=== PATIENT | female | born 1975 | race African-American/Black ===

== ENCOUNTER 2017-02-13 21:14 | Inpatient (IN) | payer BC ==
[~2017-02-13] VITALS: Ht 170.2 cm; Wt 122.9 kg
[2017-02-13] MEDS ORDERED: HYDROcodone/APAP 5/325MG 1 TAB TABLET PO PRN (22:30)
--- NOTE | 2017-02-13 22:30 | PHYS DOC ---
Past Medical History Past Medical History: Hypertension Additional Past Surgical Histo: FEMUR MELCHOR Alcohol Use: None Drug Use: None Adult General Chief Complaint Chief Complaint: ABSCESS HPI HPI Patient is a 41 year old female presents to the emergency department stating that she has an abscess under her left axilla. She states that she was seen at approximately a week ago and was placed on Bactrim. She states that the abscess was not getting any better. She states she has increased pain with arm movement. She states that she has had these in the past in which it had opened and drained them. Patient states her tetanus immunization is up-to-date. She denies any fever, chills or any nausea or vomiting. Review of Systems Review of Systems Constitutional: Denies fever or chills [] Eyes: Denies change in visual acuity, redness, or eye pain [] HENT: Denies nasal congestion or sore throat [] Respiratory: Denies cough or shortness of breath [] Cardiovascular: No additional information not addressed in HPI [] GI: Denies abdominal pain, nausea, vomiting, bloody stools or diarrhea [] : Denies dysuria or hematuria [] Musculoskeletal: Denies back pain or joint pain [] Integument: Denies rash or skin lesions complaint of abscess left axilla.. Neurologic: Denies headache, focal weakness or sensory changes [] Endocrine: Denies polyuria or polydipsia [] All other systems were reviewed and found to be within normal limits, except as documented in this note. Allergies Allergies Allergies Coded Allergies Type Severity Reaction Last Updated Verified No Known Drug Allergies 02/13/17 No Physical Exam Physical Exam Constitutional: Well developed, well nourished, no acute distress, non-toxic appearance. [] HENT: Normocephalic, atraumatic, bilateral external ears normal, oropharynx moist, no oral exudates, nose normal. [] Eyes: PERRLA, EOMI, conjunctiva normal, no discharge. [] Neck: Normal range of motion, no tenderness, supple, no stridor. [] Cardiovascular:Heart rate regular rhythm, no murmur [] Lungs & Thorax: Bilateral breath sounds clear to auscultation [] Skin: Warm, dry, no erythema, no rash. Left axilla with an abscess that is very hard and tender. No fluctuation noted. No drainage noted from the area. The size appears to be the size of a golf ball. Extremities: No tenderness, no cyanosis, no clubbing, ROM intact, no edema. [] Neurologic: Alert and oriented X 3, normal motor function, normal sensory function, no focal deficits noted. [] Psychologic: Affect normal, judgement normal, mood normal. [] Current Patient Data Vital Signs Vital Signs Date Time Temp Pulse Resp B/P (MAP) Pulse Ox O2 Delivery O2 Flow Rate FiO2 02/13/17 21:50 97.8 105 22 115/56 (75) 99 Room Air 97.8 EKG EKG [] Radiology/Procedures Radiology/Procedures [][facility] [address] [place] [address] IMAGING REPORT Signed PATIENT: SHAISTA DIEHL ACCOUNT: [id number] : 1975 LOCATION: ER AGE: 41 SEX: F EXAM STATUS: REG ER ORD. PHYSICIAN: BRITTA BENSON APRN REASON: abscess left axilla PROCEDURE: EXT NON VASC LTD LEFT Left axilla ultrasound February 13, 2017 INDICATION: Lingula Swain, swelling COMPARISON: None available TECHNIQUE: Sonographic imaging of the left axilla was performed. FINDINGS: There is a complex fluid collection measuring 2.8 x 3.8 x 2.2 cm. There is hyperemia and skin thickening involving the subcutaneous soft tissues and skin surrounding this area. Heterogeneous internal architecture most suggestive of an abscess. IMPRESSION: There is suggestion of a 2.8 x 3.8 x 2.2 cm subcutaneous abscess in the left axilla. A hematoma is a differential consideration. Electronically signed by: Alicja Crowder MD (02/13/2017 11:25 PM) [facility] DICTATED and SIGNED BY: ALICJA CROWDER MD DATE: 02/13/17 3818 CC: BRITTA BENSON APRN; NON,STAFF; JAYA STEWART MD ~ Course & Med Decision Making Course & Med Decision Making Pertinent Labs and Imaging studies reviewed. (See chart for details) Spoke with Dr. Howell in regards to admission for this patient. Patient will be placed in as a full admission with recommendations to have Dr. Stevens see the patient for incision and drainage potentially. Patient will be placed on clindamycin. Patient will be provided with pain medication. Patient is provided this information. She agrees with admission at this time. [] Dragon Disclaimer Dragon Disclaimer This electronic medical record was generated, in whole or in part, using a voice recognition dictation system. Departure Departure Impression: Primary Impression: Abscess of axilla, left Disposition: ADMITTED INPATIENT Admitting Physician: Stephanie Howell Condition: STABLE Referrals: JAYA STEWART MD (PCP) BRITTA BENSON PIER MASTER ASSISTANT Feb 13, 2017 22:29
--- NOTE | 2017-02-13 23:28 | RAD ---
Left axilla ultrasound February 13, 2017 INDICATION: Lingula Swain, swelling COMPARISON: None available TECHNIQUE: Sonographic imaging of the left axilla was performed. FINDINGS: There is a complex fluid collection measuring 2.8 x 3.8 x 2.2 cm. There is hyperemia and skin thickening involving the subcutaneous soft tissues and skin surrounding this area. Heterogeneous internal architecture most suggestive of an abscess. IMPRESSION: There is suggestion of a 2.8 x 3.8 x 2.2 cm subcutaneous abscess in the left axilla. A hematoma is a differential consideration. Electronically signed by: Dawn Aquino MD (02/13/2017 11:25 PM) [facility]
[2017-02-13 23:32] LABS: BASO # 0.1 x10^3/uL (0.0-0.2); BASO % 1 % (0-3); EOS % 2 % (0-3); HEMATOCRIT 40.1 % (36.0-47.0); HEMOGLOBIN 12.5 g/dL (12.0-15.5); LYMPH # 4.3 x10^3/uL (1.0-4.8); LYMPH % 30 % (24-48); MEAN CORPUSCULAR HEMOGLOBIN 21 pg (25-35); MEAN CORPUSCULAR HGB CONC 31 g/dL (31-37); MEAN CORPUSCULAR VOLUME 69 fL (79-100); MONO % 5 % (0-9); NEUT % 63 % (31-73); PLATELET COUNT 308 x10^3/uL (140-400); RED BLOOD COUNT 5.84 x10^6/uL (3.50-5.40); RED CELL DISTRIBUTION WIDTH 15.2 % (11.5-14.5); WHITE BLOOD COUNT 14.3 x10^3/uL (4.0-11.0)
[2017-02-13] MEDS: CLINDAMYCIN 600MG PREMIX 50 ML IV SCH (23:33)
[2017-02-13] MEDS: IV NORMAL SALINE 1000ML BAG 1,000 ML IV SCH ×2 (23:34→23:35)
[2017-02-13 23:45] LABS: CALCIUM 9.2 mg/dL (8.5-10.1); CREATININE 0.8 mg/dL (0.6-1.0); GFR 95.6; POTASSIUM 3.9 mmol/L (3.5-5.1)
[2017-02-13 23:48] LABS: PLT ESTIMATE ADEQUATE (ADEQUATE)
[2017-02-13 23:49] LABS: ALBUMIN 3.5 g/dL (3.4-5.0); ALBUMIN/GLOBULIN RATIO 0.7 (1.0-1.7); TOTAL BILIRUBIN 0.2 mg/dL (0.2-1.0); TOTAL PROTEIN 8.6 g/dL (6.4-8.2)
[2017-02-13 23:50] LABS: HYPOCHROMIA MOD
[2017-02-13 23:51] LABS: MICROCYTOSIS MOD
[2017-02-14] VITALS (14 sets, daily range): BP systolic 87–107; BP diastolic 49–66
[2017-02-14] MEDS ORDERED: GABA-586 PO (00:15)
[2017-02-14] MEDS ORDERED: IBUPROFEN 800 MG TABLET. PO PRN (00:15)
[2017-02-14] MEDS ORDERED: LISI1TAB7 PO (00:15)
[2017-02-14] MEDS ORDERED: TOPI25TA52 PO (00:16)
[2017-02-14] MEDS ORDERED: METH-37 PO (00:18)
[2017-02-14] MEDS ORDERED: ESOM40CA PO (00:18)
[2017-02-14] MEDS ORDERED: FAMO40TA57 PO (00:20)
[2017-02-14] MEDS ORDERED: IBUP800T19 PO (00:20)
[2017-02-14] MEDS: CLINDAMYCIN 600MG PREMIX 50 ML IV SCH ×3 (05:22→22:03)
[2017-02-14 05:45] LABS: BASO % 0 % (0-3); EOS % 2 % (0-3); HEMATOCRIT 35.2 % (36.0-47.0); HEMOGLOBIN 10.9 g/dL (12.0-15.5); LYMPH # 4.2 x10^3/uL (1.0-4.8); LYMPH % 34 % (24-48); MEAN CORPUSCULAR HEMOGLOBIN 21 pg (25-35); MEAN CORPUSCULAR HGB CONC 31 g/dL (31-37); MEAN CORPUSCULAR VOLUME 68 fL (79-100); MONO % 5 % (0-9); NEUT % 59 % (31-73); PLATELET COUNT 269 x10^3/uL (140-400); RED BLOOD COUNT 5.15 x10^6/uL (3.50-5.40); RED CELL DISTRIBUTION WIDTH 15.8 % (11.5-14.5); WHITE BLOOD COUNT 12.4 x10^3/uL (4.0-11.0)
[2017-02-14 06:06] LABS: CALCIUM 8.4 mg/dL (8.5-10.1); CREATININE 0.6 mg/dL (0.6-1.0); GFR 133.3; POTASSIUM 3.6 mmol/L (3.5-5.1)
[2017-02-14] MEDS: hydroCHLOROthiazide 25 MG TABLET PO SCH (09:00)
[2017-02-14] MEDS ORDERED: FAMOTIDINE 40 MG PO SCH (09:00)
[2017-02-14] MEDS: METHOCARBAMOL 500 MG TABLET PO SCH ×3 (09:00→20:51)
[2017-02-14] MEDS: LISINOPRIL 20 MG TABLET PO SCH (09:00)
[2017-02-14] MEDS: GABAPENTIN 300 MG CAPSULE. PO SCH ×3 (09:00→20:51)
[2017-02-14] MEDS: TOPIRAMATE 25 MG TABLET. PO SCH ×2 (09:00→20:51)
[2017-02-14] MEDS: KETOROLAC 30 MG/ML INJ. IV PRN ×2 (09:08→20:55)
[2017-02-14] MEDS: PANTOPRAZOLE 40 MG TABLET.DR. PO SCH ×2 (09:19→17:11)
--- NOTE | 2017-02-14 11:06 | PDOC1 ---
History and Physical Date of Admission Date of Admission DATE: 02/14/17 TIME: 10:55 Identification/Chief Complaint Chief Complaint left armpit pain and swelling Problems: Source Source: Caregiver, Chart review, Patient History of Present Illness History of Present Illness morbidly obese 41 y.o AA female, non diabetic, left armpit pain and sweling, on and off fevers at home, has seen urgent care etc and completed 2 week course doxy and bactrim,no resolve, hence admitted. GS consulted, VEry tender just on mere lifting of left axilla, palpable induration and very tender on exam, WBC 12 from 14 after overnight IV abx, dw GS - will do I and D later today.Pt agrees Past Medical History Cardiovascular: HTN Musculoskeletal: Other (neuropathy) Past Surgical History Past Surgical History: No pertinent history Family History Family History: Family History Unknown Social History Smoke: No ALCOHOL: none Drugs: None Current Problem List Problem List Problems Medical Problems: (1) Abscess of axilla, left Status: Acute Problems: Current Medications Current Medications Current Medications Sodium Chloride 1,000 ml @ 125 mls/hr Q8H IV Last administered on 02/13/17 23:34; Start 02/13/17 at 23:00; Stop 02/14/17 at 22:59 Clindamycin Phosphate 50 ml @ 100 mls/hr Q8HRS IV Last administered on 05:22; Start 02/13/17 at 23:00 Acetaminophen/ Hydrocodone Bitart (Lortab 5/325) 2 tab PRN Q6HRS PRN PO SEVERE PAIN; Start 02/13/17 at 22:30 Ibuprofen (Motrin) 800 mg PRN Q6HRS PRN PO INFLAMMATION; Start 02/14/17 at 00: 15 Methocarbamol (Robaxin) 500 mg TID PO ; Start 02/14/17 at 09:00 Topiramate (Topamax) 25 mg BID PO ; Start 02/14/17 at 09:00 Pantoprazole Sodium (Protonix) 40 mg BIDAC PO Last administered on 02/14/17 09:19; Start 02/14/17 at 07:30 Non-Formulary Medication 40 mg TID PO ; Start 02/14/17 at 09:00; Stop at 09:00; Status DC Gabapentin (Neurontin) 300 mg TID PO ; Start 02/14/17 at 09:00 Lisinopril (Prinivil) 20 mg DAILY PO ; Start 02/14/17 at 09:00 Hydrochlorothiazide (Hydrodiuril) 25 mg DAILY PO ; Start 02/14/17 at 09:00 Ketorolac Tromethamine (Toradol) 30 mg PRN Q6HRS PRN IV PAIN Last administered on 02/14/17t 09:08; Start 02/14/17 at 08:30; Stop 02/19/17 at 08:29 Active Scripts Active Reported Ibuprofen 800 Mg Tablet 800 Mg PO Pepcid (Famotidine) 40 Mg Tablet 40 Mg PO TID Nexium Capsule (Esomeprazole Magnesium) 40 Mg Capsule.dr 40 Mg PO BID Robaxin (Methocarbamol) 500 Mg Tablet 1 Tab PO TID Topamax (Topiramate) 25 Mg Tablet 1 Tab PO BID Lisinopril-Hctz 20-25 Mg Tab (Lisinopril/Hydrochlorothiazide) 1 Each Tablet 1 Tab PO DAILY Gabapentin 300 Mg Capsule 300 Mg PO TID Allergies Allergies: Coded Allergies: No Known Drug Allergies (Unverified , 02/13/17) ROS Review of System as per HPI, all else is neg Physical Exam General: Alert, Oriented X3, Cooperative, No acute distress HEENT: PERRLA Lungs: Clear to auscultation, Normal air movement Heart: S1S2, RRR, no thrills, no rubs, no gallops, no murmurs Cardiovascular: S1, S2 Abdomen: Normal bowel sounds, Soft, No tenderness, No hepatosplenomegaly, No masses Rectal Exam: not examined Extremities: No clubbing, No cyanosis, No edema, Normal pulses, No tenderness/ swelling Skin: Other (left axilla tender to aplpation, redness, swelling palpable tender induartion, high likelihod of abscess) Neuro: Normal gait, Normal speech, Strength at 5/5 X4 ext, Normal tone, Sensation intact, Cranial nerves 3-12 NL, Reflexes 2+ Psych/Mental Status: Mental status NL, Mood NL Vitals Vitals Vital Signs Date Time Temp Pulse Resp B/P (MAP) Pulse Ox O2 Delivery O2 Flow Rate FiO2 02/14/17 07:00 98.9 98 18 87/55 (66) 93 Room Air 98.9 95/49 (64) Labs Labs Laboratory Tests Test 02/13/17 23:24 02/14/17 04:35 White Blood Count 14.3 x10^3/uL (4.0-11.0) 12.4 x10^3/uL (4.0-11.0) Red Blood Count 5.84 x10^6/uL (3.50-5.40) 5.15 x10^6/uL (3.50-5.40) Hemoglobin 12.5 g/dL (12.0-15.5) 10.9 g/dL (12.0-15.5) Hematocrit 40.1 % (36.0-47.0) 35.2 % (36.0-47.0) Mean Corpuscular Volume 69 fL (79-100) 68 fL (79-100) Mean Corpuscular Hemoglobin 21 pg (25-35) 21 pg (25-35) Mean Corpuscular Hemoglobin Concent 31 g/dL (31-37) 31 g/dL (31-37) Red Cell Distribution Width 15.2 % (11.5-14.5) 15.8 % (11.5-14.5) Platelet Count 308 x10^3/uL (140-400) 269 x10^3/uL (140-400) Neutrophils (%) (Auto) 63 % (31-73) 59 % (31-73) Lymphocytes (%) (Auto) 30 % (24-48) 34 % (24-48) Monocytes (%) (Auto) 5 % (0-9) 5 % (0-9) Eosinophils (%) (Auto) 2 % (0-3) 2 % (0-3) Basophils (%) (Auto) 1 % (0-3) 0 % (0-3) Neutrophils # (Auto) 8.9 x10^3uL (1.8-7.7) 7.3 x10^3uL (1.8-7.7) Lymphocytes # (Auto) 4.3 x10^3/uL (1.0-4.8) 4.2 x10^3/uL (1.0-4.8) Monocytes # (Auto) 0.7 x10^3/uL (0.0-1.1) 0.7 x10^3/uL (0.0-1.1) Eosinophils # (Auto) 0.2 x10^3/uL (0.0-0.7) 0.2 x10^3/uL (0.0-0.7) Basophils # (Auto) 0.1 x10^3/uL (0.0-0.2) 0.0 x10^3/uL (0.0-0.2) Platelet Estimate Adequate (ADEQUATE) Hypochromasia Mod Microcytosis Mod Sodium Level 137 mmol/L (136-145) 139 mmol/L (136-145) Potassium Level 3.9 mmol/L (3.5-5.1) 3.6 mmol/L (3.5-5.1) Chloride Level 100 mmol/L (98-107) 103 mmol/L (98-107) Carbon Dioxide Level 27 mmol/L (21-32) 26 mmol/L (21-32) Anion Gap 10 (6-14) 10 (6-14) Blood Urea Nitrogen 13 mg/dL (7-20) 12 mg/dL (7-20) Creatinine 0.8 mg/dL (0.6-1.0) 0.6 mg/dL (0.6-1.0) Estimated GFR (Cockcroft-Gault) 95.6 133.3 BUN/Creatinine Ratio 16 (6-20) Glucose Level 111 mg/dL (70-99) 96 mg/dL (70-99) Calcium Level 9.2 mg/dL (8.5-10.1) 8.4 mg/dL (8.5-10.1) Total Bilirubin 0.2 mg/dL (0.2-1.0) Aspartate Amino Transf (AST/SGOT) 16 U/L (15-37) Alanine Aminotransferase (ALT/SGPT) 25 U/L (14-59) Alkaline Phosphatase 66 U/L (46-116) Total Protein 8.6 g/dL (6.4-8.2) Albumin 3.5 g/dL (3.4-5.0) Albumin/Globulin Ratio 0.7 (1.0-1.7) Laboratory Tests Test 02/13/17 23:24 02/14/17 04:35 White Blood Count 14.3 x10^3/uL (4.0-11.0) 12.4 x10^3/uL (4.0-11.0) Red Blood Count 5.84 x10^6/uL (3.50-5.40) 5.15 x10^6/uL (3.50-5.40) Hemoglobin 12.5 g/dL (12.0-15.5) 10.9 g/dL (12.0-15.5) Hematocrit 40.1 % (36.0-47.0) 35.2 % (36.0-47.0) Mean Corpuscular Volume 69 fL (79-100) 68 fL (79-100) Mean Corpuscular Hemoglobin 21 pg (25-35) 21 pg (25-35) Mean Corpuscular Hemoglobin Concent 31 g/dL (31-37) 31 g/dL (31-37) Red Cell Distribution Width 15.2 % (11.5-14.5) 15.8 % (11.5-14.5) Platelet Count 308 x10^3/uL (140-400) 269 x10^3/uL (140-400) Neutrophils (%) (Auto) 63 % (31-73) 59 % (31-73) Lymphocytes (%) (Auto) 30 % (24-48) 34 % (24-48) Monocytes (%) (Auto) 5 % (0-9) 5 % (0-9) Eosinophils (%) (Auto) 2 % (0-3) 2 % (0-3) Basophils (%) (Auto) 1 % (0-3) 0 % (0-3) Neutrophils # (Auto) 8.9 x10^3uL (1.8-7.7) 7.3 x10^3uL (1.8-7.7) Lymphocytes # (Auto) 4.3 x10^3/uL (1.0-4.8) 4.2 x10^3/uL (1.0-4.8) Monocytes # (Auto) 0.7 x10^3/uL (0.0-1.1) 0.7 x10^3/uL (0.0-1.1) Eosinophils # (Auto) 0.2 x10^3/uL (0.0-0.7) 0.2 x10^3/uL (0.0-0.7) Basophils # (Auto) 0.1 x10^3/uL (0.0-0.2) 0.0 x10^3/uL (0.0-0.2) Platelet Estimate Adequate (ADEQUATE) Hypochromasia Mod Microcytosis Mod Sodium Level 137 mmol/L (136-145) 139 mmol/L (136-145) Potassium Level 3.9 mmol/L (3.5-5.1) 3.6 mmol/L (3.5-5.1) Chloride Level 100 mmol/L (98-107) 103 mmol/L (98-107) Carbon Dioxide Level 27 mmol/L (21-32) 26 mmol/L (21-32) Anion Gap 10 (6-14) 10 (6-14) Blood Urea Nitrogen 13 mg/dL (7-20) 12 mg/dL (7-20) Creatinine 0.8 mg/dL (0.6-1.0) 0.6 mg/dL (0.6-1.0) Estimated GFR (Cockcroft-Gault) 95.6 133.3 BUN/Creatinine Ratio 16 (6-20) Glucose Level 111 mg/dL (70-99) 96 mg/dL (70-99) Calcium Level 9.2 mg/dL (8.5-10.1) 8.4 mg/dL (8.5-10.1) Total Bilirubin 0.2 mg/dL (0.2-1.0) Aspartate Amino Transf (AST/SGOT) 16 U/L (15-37) Alanine Aminotransferase (ALT/SGPT) 25 U/L (14-59) Alkaline Phosphatase 66 U/L (46-116) Total Protein 8.6 g/dL (6.4-8.2) Albumin 3.5 g/dL (3.4-5.0) Albumin/Globulin Ratio 0.7 (1.0-1.7) VTE Prophylaxis Ordered VTE Prophylaxis Devices: Yes VTE Pharmacological Prophylaxi: Yes Assessment/Plan Assessment/Plan 1. LEft axillary cellulitis possible abscess underneath - already scheduled for I and D later as clinically needs it, no imaging on admit, no need given sx scheduled already - labs post op, control pain, consider NSAids post op when ok with GS 2. Obesity, depression chronic pain ,neuropathy - all chronic stable cont home meds ROBERTA TURNER MD Feb 14, 2017 11:06
[2017-02-14] MEDS ORDERED: CITRIC ACID/SODIUM CITRATE 30 ML SOLUTION. PO ONE (11:45)
[2017-02-14] MEDS ORDERED: METOCLOPRAMIDE HCL 10 MG/2 ML VIAL. IV ONE (11:45)
[2017-02-14] MEDS ORDERED: LIDOCAINE 2% PF Vial for OR 5 ML VIAL. ONE (12:05)
[2017-02-14] MEDS ORDERED: ONDANSETRON PF 4 MG/2 ML VIAL. ONE ×2 (12:05→12:07)
[2017-02-14] MEDS ORDERED: PROPOFOL 20 ML IV ONE (12:05)
[2017-02-14] MEDS ORDERED: DEXAMETHASONE SOD PHOS 20 MG/5 ML VIAL. ONE (12:05)
[2017-02-14] MEDS ORDERED: fentaNYL PF VIAL 100 MCG/2 ML VIAL ONE ×2 (12:05→13:07)
[2017-02-14] MEDS ORDERED: SUCCINYLCHOLINE 200 MG/10 ML VIAL. ONE (12:14)
[2017-02-14] MEDS ORDERED: BUPIVAC MPF-EPI 0.5%-1:200000 30 ML VIAL. ONE (12:25)
[2017-02-14] MEDS ORDERED: SURGICEL HEMOSTAT 2X3 EACH. ONE (12:33)
--- NOTE | 2017-02-14 12:49 | PDOC ---
BRIEF OPERATIVE NOTE Date: Feb 14, 2017 Pre-Op Diagnosis left axillary abscess Post-Op Diagnosis same Procedure Performed excisional debridement of skin and subcutaneous fat, left axilla Surgeon Rodney Anesthesia Type: General Blood Loss 5cc IV Fluid 400 cc Specimens Obtained cultures Findings sebaceous abscess Complications none Operative Note Wk # [id number] JOSE HERNANDEZ MD Feb 14, 2017 12:49
[2017-02-14] MEDS ORDERED: SEVOFLURANE 31 TO 60 MINUTES. IH ONE (12:58)
[2017-02-14] MEDS ORDERED: IV RINGERS,LACTATED 1000ML 1,000 ML IV SCH (13:00)
[2017-02-14] MEDS: fentaNYL PF VIAL 100 MCG/2 ML VIAL IV PRN ×2 (13:09→13:23)
[2017-02-14] MEDS ORDERED: MORPHINE SULFATE 2 MG/ML DISP.SYRIN. IV PRN (13:15)
[2017-02-14] MEDS ORDERED: ONDANSETRON PF 4 MG/2 ML VIAL. IV PRN (13:15)
[2017-02-14] MEDS ORDERED: fentaNYL PF VIAL 100 MCG/2 ML VIAL IV PRN (13:15)
[2017-02-14] MEDS ORDERED: LIDOCAINE 1% PF 2 ML VIAL. ID PRN (13:15)
[2017-02-14] MEDS ORDERED: HYDROmorphone 2 MG/ML VIAL ONE (13:28)
[2017-02-14] MEDS: HYDROmorphone 2 MG/ML VIAL IV PRN ×2 (13:31→13:41)
[2017-02-14] MEDS: PROCHLORPERAZINE 10 MG/2 ML VIAL. IV PRN ×2 (13:50→14:05)
--- NOTE | 2017-02-14 14:54 | OP ---
DATE OF SURGERY: 02/14/2017 PREOPERATIVE DIAGNOSIS: Left axillary abscess. POSTOPERATIVE DIAGNOSIS: Left axillary abscess. PROCEDURE: Excisional debridement of skin and subcutaneous fat, left axilla. SURGEON: Jose Hernandez MD ANESTHESIA: General. BLOOD LOSS: 5 mL. INTRAVENOUS FLUID: 400 mL. INDICATIONS: The patient is a 41-year-old with pain, swelling, induration and fluctuance in the left axilla, brought for debridement. OPERATIVE FINDINGS: She appeared to have a sebaceous abscess. DESCRIPTION OF PROCEDURE: The patient brought to the operating suite. The patient given a general LMA and the left axilla was prepped and draped in usual sterile fashion. An elliptical skin incision over the process was made and purulent drainage evacuated. The wound was cultured. It was irrigated and checked for hemostasis. When present and a correct sponge count was obtained, the wound was dressed with a piece of Surgicel and half-inch plain Nu Gauze soaked in saline. Sterile dressing applied. The patient awakened from her anesthetic and taken to the recovery room in satisfactory condition. JOSE HRENANDEZ MD DR: GABI/fadumo JOB#: [id number] / [id number]
[2017-02-14] MEDS: IV NORMAL SALINE 1000ML BAG 1,000 ML IV SCH (15:11)
[2017-02-15] VITALS (7 sets, daily range): BP systolic 104–139; BP diastolic 52–80
[2017-02-15] MEDS: CLINDAMYCIN 600MG PREMIX 50 ML IV SCH (05:46)
[2017-02-15] MEDS: METHOCARBAMOL 500 MG TABLET PO SCH ×3 (08:00→20:42)
[2017-02-15] MEDS: GABAPENTIN 300 MG CAPSULE. PO SCH ×3 (08:00→20:42)
[2017-02-15] MEDS: TOPIRAMATE 25 MG TABLET. PO SCH ×2 (08:00→20:42)
[2017-02-15] MEDS: PANTOPRAZOLE 40 MG TABLET.DR. PO SCH ×2 (08:00→16:24)
[2017-02-15] MEDS: hydroCHLOROthiazide 25 MG TABLET PO SCH (08:56)
[2017-02-15] MEDS: LISINOPRIL 20 MG TABLET PO SCH (08:56)
[2017-02-15] MEDS: KETOROLAC 30 MG/ML INJ. IV PRN (09:34)
--- NOTE | 2017-02-15 09:51 | PDOC2 ---
CONSULT Date of Consult Date of Consult DATE: 02/14/17 TIME: 09:00 Reason for Consult Reason for Consult: left axillary abscess Referring Physician Referring Physician: MORELIA Identification/Chief Complaint Chief Complaint left axillary pain Problems: Source Source: Patient History of Present Illness Reason for Visit: Ewa is a pleasant 41 yo obese female with pain, swelling, warmth and fluctuance in her left axilla Past Medical History Cardiovascular: HTN Musculoskeletal: Other (neuropathy) Past Surgical History Past Surgical History: No pertinent history Family History Family History: Family History Unknown Social History No ALCOHOL: none Drugs: None Current Problem List Problem List Problems Medical Problems: (1) Abscess of axilla, left Status: Acute Current Medications Current Medications Current Medications Sodium Chloride 1,000 ml @ 125 mls/hr Q8H IV Last administered on 02/14/17 15:11; Start 02/13/17 at 23:00; Stop 02/14/17 at 22:59; Status DC Clindamycin Phosphate 50 ml @ 100 mls/hr Q8HRS IV Last administered on 05:46; Start 02/13/17 at 23:00 Acetaminophen/ Hydrocodone Bitart (Lortab 5/325) 2 tab PRN Q6HRS PRN PO SEVERE PAIN; Start 02/13/17 at 22:30 Ibuprofen (Motrin) 800 mg PRN Q6HRS PRN PO INFLAMMATION; Start 02/14/17 at 00: 15 Methocarbamol (Robaxin) 500 mg TID PO Last administered on 02/15/17 08:00; Start 02/14/17 at 09:00 Topiramate (Topamax) 25 mg BID PO Last administered on 02/15/17 08:00; Start 02/14/17 at 09:00 Pantoprazole Sodium (Protonix) 40 mg BIDAC PO Last administered on 02/15/17 08:00; Start 02/14/17 at 07:30 Non-Formulary Medication 40 mg TID PO ; Start 02/14/17 at 09:00; Stop at 09:00; Status DC Gabapentin (Neurontin) 300 mg TID PO Last administered on 02/15/17 08:00; Start 02/14/17 at 09:00 Lisinopril (Prinivil) 20 mg DAILY PO ; Start 02/14/17 at 09:00 Hydrochlorothiazide (Hydrodiuril) 25 mg DAILY PO ; Start 02/14/17 at 09:00 Ketorolac Tromethamine (Toradol) 30 mg PRN Q6HRS PRN IV PAIN Last administered on 02/15/17 09:34; Start 02/14/17 at 08:30; Stop 02/19/17 at 08:29 Citric Acid/ Sodium Citrate (Bicitra) 30 ml 1X ONCE PO Last administered on 12:05; Start 02/14/17 at 11:45; Stop 02/14/17 at 11:46; Status DC Metoclopramide HCl (Reglan) 10 mg 1X ONCE IV Last administered on 02/14/17 12:05; Start 02/14/17 at 11:45; Stop 02/14/17 at 11:46; Status DC Dexamethasone Sodium Phosphate (Decadron) 20 mg STK-MED ONCE .ROUTE ; Start 03/21 at 12:05; Stop 02/14/17 at 12:06; Status DC Ondansetron HCl (Zofran) 4 mg STK-MED ONCE .ROUTE ; Start 02/14/17 at 12:05; Stop 02/14/17 at 12:06; Status DC Propofol 20 ml @ As Directed STK-MED ONCE IV ; Start 02/14/17 at 12:05; Stop 02/14/17 at 12:06; Status DC Lidocaine HCl (Lidocaine Pf 2% Vial) 5 ml STK-MED ONCE .ROUTE ; Start 02/14/17 at 12:05; Stop 02/14/17 at 12:06; Status DC Fentanyl Citrate (Fentanyl 2ml Vial) 100 mcg STK-MED ONCE .ROUTE ; Start at 12:05; Stop 02/14/17 at 12:06; Status DC Ondansetron HCl (Zofran) 4 mg STK-MED ONCE .ROUTE ; Start 02/14/17 at 12:07; Stop 02/14/17 at 12:08; Status DC Succinylcholine Chloride (Anectine) 200 mg STK-MED ONCE .ROUTE ; Start at 12:14; Stop 02/14/17 at 12:15; Status DC Bupivacaine HCl/ Epinephrine Bitart (Sensorcain-Mpf Epi 0.5%-1:065009) 30 ml STK -MED ONCE .ROUTE ; Start 02/14/17 at 12:25; Stop 02/14/17 at 12:26; Status DC Cellulose 1 each STK-MED ONCE .ROUTE Last administered on 02/14/17 12:26; Start 02/14/17 at 12:33; Stop 02/14/17 at 12:34; Status DC Sevoflurane (Ultane) 30 ml STK-MED ONCE IH ; Start 02/14/17 at 12:58; Stop 03/21 at 12:59; Status DC Ondansetron HCl (Zofran) 4 mg PRN Q6HRS PRN IV NAUSEA/VOMITING; Start at 13:15; Stop 02/14/17 at 19:00; Status DC Fentanyl Citrate (Fentanyl 2ml Vial) 25 mcg PRN Q5MIN PRN IV MILD PAIN; Start 02/14/17 at 13:15; Stop 02/14/17 at 19:00; Status DC Fentanyl Citrate (Fentanyl 2ml Vial) 50 mcg PRN Q5MIN PRN IV MODERATE PAIN Last administered on 02/14/17 13:23; Start 02/14/17 at 13:15; Stop 02/14/17 at 19:00; Status DC Morphine Sulfate 1 mg PRN Q10MIN PRN IV SEVERE PAIN; Start 02/14/17 at 13:15; Stop 02/14/17 at 19:00; Status DC Ringer's Solution 1,000 ml @ 30 mls/hr Q24H IV Last administered on 12:30; Start 02/14/17 at 13:00; Stop 02/14/17 at 19:00; Status DC Lidocaine HCl (Xylocaine-Mpf 1% Vial) 2 ml PRN 1X PRN ID PRIOR TO IV START; Start 02/14/17 at 13:15; Stop 02/14/17 at 19:00; Status DC Hydromorphone HCl (Dilaudid) 0.5 mg PRN Q10MIN PRN IV SEV PAIN, Second choice Last administered on 02/14/17 13:41; Start 02/14/17 at 13:15; Stop 02/14/17 at 19:00; Status DC Prochlorperazine Edisylate (Compazine) 5 mg PACU PRN PRN IV NAUSEA, MRX1 Last administered on 02/14/17t 14:05; Start 02/14/17 at 13:15; Stop 02/14/17 at 19 :00; Status DC Fentanyl Citrate (Fentanyl 2ml Vial) 100 mcg STK-MED ONCE .ROUTE ; Start at 13:07; Stop 02/14/17 at 13:08; Status DC Hydromorphone HCl (Dilaudid) 2 mg STK-MED ONCE .ROUTE ; Start 02/14/17 at 13:28 ; Stop 02/14/17 at 13:29; Status DC Active Scripts Active Reported Ibuprofen 800 Mg Tablet 800 Mg PO Pepcid (Famotidine) 40 Mg Tablet 40 Mg PO TID Nexium Capsule (Esomeprazole Magnesium) 40 Mg Capsule.dr 40 Mg PO BID Robaxin (Methocarbamol) 500 Mg Tablet 1 Tab PO TID Topamax (Topiramate) 25 Mg Tablet 1 Tab PO BID Lisinopril-Hctz 20-25 Mg Tab (Lisinopril/Hydrochlorothiazide) 1 Each Tablet 1 Tab PO DAILY Gabapentin 300 Mg Capsule 300 Mg PO TID Allergies Allergies: Coded Allergies: No Known Drug Allergies (Unverified , 02/13/17) ROS Review of System negative with exception of present complaints Physical Exam General: Alert, Oriented X3, No acute distress HEENT: Atraumatic Lungs: Normal air movement Heart: Regular rate Abdomen: Soft Extremities: Other (swelling, warmth, and TTP in the left axilla) Vitals VITALS Vital Signs Date Time Temp Pulse Resp B/P (MAP) Pulse Ox O2 Delivery O2 Flow Rate FiO2 02/15/17 07:45 Room Air 02/15/17 07:00 97.9 82 19 105/52 (69) 93 97.9 02/14/17 13:53 8.0 Labs Labs Laboratory Tests Test 02/13/17 23:24 02/14/17 04:35 White Blood Count 14.3 x10^3/uL (4.0-11.0) 12.4 x10^3/uL (4.0-11.0) Red Blood Count 5.84 x10^6/uL (3.50-5.40) 5.15 x10^6/uL (3.50-5.40) Hemoglobin 12.5 g/dL (12.0-15.5) 10.9 g/dL (12.0-15.5) Hematocrit 40.1 % (36.0-47.0) 35.2 % (36.0-47.0) Mean Corpuscular Volume 69 fL (79-100) 68 fL (79-100) Mean Corpuscular Hemoglobin 21 pg (25-35) 21 pg (25-35) Mean Corpuscular Hemoglobin Concent 31 g/dL (31-37) 31 g/dL (31-37) Red Cell Distribution Width 15.2 % (11.5-14.5) 15.8 % (11.5-14.5) Platelet Count 308 x10^3/uL (140-400) 269 x10^3/uL (140-400) Neutrophils (%) (Auto) 63 % (31-73) 59 % (31-73) Lymphocytes (%) (Auto) 30 % (24-48) 34 % (24-48) Monocytes (%) (Auto) 5 % (0-9) 5 % (0-9) Eosinophils (%) (Auto) 2 % (0-3) 2 % (0-3) Basophils (%) (Auto) 1 % (0-3) 0 % (0-3) Neutrophils # (Auto) 8.9 x10^3uL (1.8-7.7) 7.3 x10^3uL (1.8-7.7) Lymphocytes # (Auto) 4.3 x10^3/uL (1.0-4.8) 4.2 x10^3/uL (1.0-4.8) Monocytes # (Auto) 0.7 x10^3/uL (0.0-1.1) 0.7 x10^3/uL (0.0-1.1) Eosinophils # (Auto) 0.2 x10^3/uL (0.0-0.7) 0.2 x10^3/uL (0.0-0.7) Basophils # (Auto) 0.1 x10^3/uL (0.0-0.2) 0.0 x10^3/uL (0.0-0.2) Platelet Estimate Adequate (ADEQUATE) Hypochromasia Mod Microcytosis Mod Sodium Level 137 mmol/L (136-145) 139 mmol/L (136-145) Potassium Level 3.9 mmol/L (3.5-5.1) 3.6 mmol/L (3.5-5.1) Chloride Level 100 mmol/L (98-107) 103 mmol/L (98-107) Carbon Dioxide Level 27 mmol/L (21-32) 26 mmol/L (21-32) Anion Gap 10 (6-14) 10 (6-14) Blood Urea Nitrogen 13 mg/dL (7-20) 12 mg/dL (7-20) Creatinine 0.8 mg/dL (0.6-1.0) 0.6 mg/dL (0.6-1.0) Estimated GFR (Cockcroft-Gault) 95.6 133.3 BUN/Creatinine Ratio 16 (6-20) Glucose Level 111 mg/dL (70-99) 96 mg/dL (70-99) Calcium Level 9.2 mg/dL (8.5-10.1) 8.4 mg/dL (8.5-10.1) Total Bilirubin 0.2 mg/dL (0.2-1.0) Aspartate Amino Transf (AST/SGOT) 16 U/L (15-37) Alanine Aminotransferase (ALT/SGPT) 25 U/L (14-59) Alkaline Phosphatase 66 U/L (46-116) Total Protein 8.6 g/dL (6.4-8.2) Albumin 3.5 g/dL (3.4-5.0) Albumin/Globulin Ratio 0.7 (1.0-1.7) Assessment/Plan Assessment/Plan left axillary abscess debridement in OR under general anesthetic Explained to Ewa that she will have an open wound post op needing dressing changes. She will proceed Thanks for consult JOSE HERNANDEZ MD Feb 15, 2017 09:51
[2017-02-15] MEDS ORDERED: VANCOMYCIN PER PHARMACY MC PRN (12:45)
[2017-02-15] MEDS ORDERED: VANCOMYCIN 2 GM in IV DEXTROSE 5% 500 ML IV ONE (13:30)
[2017-02-15] MEDS: FERROUS SULFATE 325 MG TABLET. PO SCH ×2 (13:35→20:42)
--- NOTE | 2017-02-15 15:10 | PDOC ---
PROGRESS NOTES Chief Complaint Chief Complaint 1. LEft axillary cellulitis possible abscess underneath - already scheduled for I and D 2. Obesity, depression chronic pain ,neuropathy plan: fu with sx fu with wound cx dc clinda add vanco cont home meds pain control wound care consult History of Present Illness History of Present Illness ROS: no fever, chills, sob or chest pain left axillary abcess post i and d has dressing packing now + pain Vitals Vitals Vital Signs Date Time Temp Pulse Resp B/P (MAP) Pulse Ox O2 Delivery O2 Flow Rate FiO2 02/15/17 11:04 97.7 84 20 124/69 (87) 97 Room Air 97.7 02/14/17 13:53 8.0 Physical Exam General: Alert, Oriented X3, No acute distress Heart: Regular rate, Normal S1, Normal S2 Lungs: Clear Abdomen: Normal bowel sounds, Soft Extremities: No clubbing, No cyanosis, Other (swelling, warmth, and TTP in the left axilla) Skin: Other (left axilla tender to aplpation, redness, swelling palpable tender induartion, open wound with dressing packing for drainage) Assessment and Plan Assessmemt and Plan Problems Medical Problems: (1) Abscess of axilla, left Status: Acute Problems: Comment Review of Relevant I have reviewed the following items clover (where applicable) has been applied. Labs Laboratory Tests Test 02/13/17 23:24 02/14/17 04:35 White Blood Count 14.3 x10^3/uL (4.0-11.0) 12.4 x10^3/uL (4.0-11.0) Red Blood Count 5.84 x10^6/uL (3.50-5.40) 5.15 x10^6/uL (3.50-5.40) Hemoglobin 12.5 g/dL (12.0-15.5) 10.9 g/dL (12.0-15.5) Hematocrit 40.1 % (36.0-47.0) 35.2 % (36.0-47.0) Mean Corpuscular Volume 69 fL (79-100) 68 fL (79-100) Mean Corpuscular Hemoglobin 21 pg (25-35) 21 pg (25-35) Mean Corpuscular Hemoglobin Concent 31 g/dL (31-37) 31 g/dL (31-37) Red Cell Distribution Width 15.2 % (11.5-14.5) 15.8 % (11.5-14.5) Platelet Count 308 x10^3/uL (140-400) 269 x10^3/uL (140-400) Neutrophils (%) (Auto) 63 % (31-73) 59 % (31-73) Lymphocytes (%) (Auto) 30 % (24-48) 34 % (24-48) Monocytes (%) (Auto) 5 % (0-9) 5 % (0-9) Eosinophils (%) (Auto) 2 % (0-3) 2 % (0-3) Basophils (%) (Auto) 1 % (0-3) 0 % (0-3) Neutrophils # (Auto) 8.9 x10^3uL (1.8-7.7) 7.3 x10^3uL (1.8-7.7) Lymphocytes # (Auto) 4.3 x10^3/uL (1.0-4.8) 4.2 x10^3/uL (1.0-4.8) Monocytes # (Auto) 0.7 x10^3/uL (0.0-1.1) 0.7 x10^3/uL (0.0-1.1) Eosinophils # (Auto) 0.2 x10^3/uL (0.0-0.7) 0.2 x10^3/uL (0.0-0.7) Basophils # (Auto) 0.1 x10^3/uL (0.0-0.2) 0.0 x10^3/uL (0.0-0.2) Platelet Estimate Adequate (ADEQUATE) Hypochromasia Mod Microcytosis Mod Sodium Level 137 mmol/L (136-145) 139 mmol/L (136-145) Potassium Level 3.9 mmol/L (3.5-5.1) 3.6 mmol/L (3.5-5.1) Chloride Level 100 mmol/L (98-107) 103 mmol/L (98-107) Carbon Dioxide Level 27 mmol/L (21-32) 26 mmol/L (21-32) Anion Gap 10 (6-14) 10 (6-14) Blood Urea Nitrogen 13 mg/dL (7-20) 12 mg/dL (7-20) Creatinine 0.8 mg/dL (0.6-1.0) 0.6 mg/dL (0.6-1.0) Estimated GFR (Cockcroft-Gault) 95.6 133.3 BUN/Creatinine Ratio 16 (6-20) Glucose Level 111 mg/dL (70-99) 96 mg/dL (70-99) Calcium Level 9.2 mg/dL (8.5-10.1) 8.4 mg/dL (8.5-10.1) Total Bilirubin 0.2 mg/dL (0.2-1.0) Aspartate Amino Transf (AST/SGOT) 16 U/L (15-37) Alanine Aminotransferase (ALT/SGPT) 25 U/L (14-59) Alkaline Phosphatase 66 U/L (46-116) Total Protein 8.6 g/dL (6.4-8.2) Albumin 3.5 g/dL (3.4-5.0) Albumin/Globulin Ratio 0.7 (1.0-1.7) Microbiology 02/13/17 Blood Culture - Preliminary, Resulted NO GROWTH AFTER 1 DAY 02/14/17 Gram Stain - Final, Complete Medications Current Medications Sodium Chloride 1,000 ml @ 125 mls/hr Q8H IV Last administered on 02/14/17 15:11; Start 02/13/17 at 23:00; Stop 02/14/17 at 22:59; Status DC Clindamycin Phosphate 50 ml @ 100 mls/hr Q8HRS IV Last administered on 05:46; Start 02/13/17 at 23:00; Stop 02/15/17 at 12:39; Status DC Acetaminophen/ Hydrocodone Bitart (Lortab 5/325) 2 tab PRN Q6HRS PRN PO SEVERE PAIN; Start 02/13/17 at 22:30 Ibuprofen (Motrin) 800 mg PRN Q6HRS PRN PO INFLAMMATION; Start 02/14/17 at 00: 15 Methocarbamol (Robaxin) 500 mg TID PO Last administered on 02/15/17 13:35; Start 02/14/17 at 09:00 Topiramate (Topamax) 25 mg BID PO Last administered on 02/15/17 08:00; Start 02/14/17 at 09:00 Pantoprazole Sodium (Protonix) 40 mg BIDAC PO Last administered on 02/15/17 08:00; Start 02/14/17 at 07:30 Non-Formulary Medication 40 mg TID PO ; Start 02/14/17 at 09:00; Stop at 09:00; Status DC Gabapentin (Neurontin) 300 mg TID PO Last administered on 02/15/17 13:35; Start 02/14/17 at 09:00 Lisinopril (Prinivil) 20 mg DAILY PO ; Start 02/14/17 at 09:00 Hydrochlorothiazide (Hydrodiuril) 25 mg DAILY PO ; Start 02/14/17 at 09:00 Ketorolac Tromethamine (Toradol) 30 mg PRN Q6HRS PRN IV PAIN Last administered on 02/15/17 09:34; Start 02/14/17 at 08:30; Stop 02/19/17 at 08:29 Citric Acid/ Sodium Citrate (Bicitra) 30 ml 1X ONCE PO Last administered on 12:05; Start 02/14/17 at 11:45; Stop 02/14/17 at 11:46; Status DC Metoclopramide HCl (Reglan) 10 mg 1X ONCE IV Last administered on 02/14/17 12:05; Start 02/14/17 at 11:45; Stop 02/14/17 at 11:46; Status DC Dexamethasone Sodium Phosphate (Decadron) 20 mg STK-MED ONCE .ROUTE ; Start 03/21 at 12:05; Stop 02/14/17 at 12:06; Status DC Ondansetron HCl (Zofran) 4 mg STK-MED ONCE .ROUTE ; Start 02/14/17 at 12:05; Stop 02/14/17 at 12:06; Status DC Propofol 20 ml @ As Directed STK-MED ONCE IV ; Start 02/14/17 at 12:05; Stop 02/14/17 at 12:06; Status DC Lidocaine HCl (Lidocaine Pf 2% Vial) 5 ml STK-MED ONCE .ROUTE ; Start 02/14/17 at 12:05; Stop 02/14/17 at 12:06; Status DC Fentanyl Citrate (Fentanyl 2ml Vial) 100 mcg STK-MED ONCE .ROUTE ; Start at 12:05; Stop 02/14/17 at 12:06; Status DC Ondansetron HCl (Zofran) 4 mg STK-MED ONCE .ROUTE ; Start 02/14/17 at 12:07; Stop 02/14/17 at 12:08; Status DC Succinylcholine Chloride (Anectine) 200 mg STK-MED ONCE .ROUTE ; Start at 12:14; Stop 02/14/17 at 12:15; Status DC Bupivacaine HCl/ Epinephrine Bitart (Sensorcain-Mpf Epi 0.5%-[id number]) 30 ml STK -MED ONCE .ROUTE ; Start 02/14/17 at 12:25; Stop 02/14/17 at 12:26; Status DC Cellulose 1 each STK-MED ONCE .ROUTE Last administered on 02/14/17 12:26; Start 02/14/17 at 12:33; Stop 02/14/17 at 12:34; Status DC Sevoflurane (Ultane) 30 ml STK-MED ONCE IH ; Start 02/14/17 at 12:58; Stop 03/21 at 12:59; Status DC Ondansetron HCl (Zofran) 4 mg PRN Q6HRS PRN IV NAUSEA/VOMITING; Start at 13:15; Stop 02/14/17 at 19:00; Status DC Fentanyl Citrate (Fentanyl 2ml Vial) 25 mcg PRN Q5MIN PRN IV MILD PAIN; Start 02/14/17 at 13:15; Stop 02/14/17 at 19:00; Status DC Fentanyl Citrate (Fentanyl 2ml Vial) 50 mcg PRN Q5MIN PRN IV MODERATE PAIN Last administered on 02/14/17 13:23; Start 02/14/17 at 13:15; Stop 02/14/17 at 19:00; Status DC Morphine Sulfate 1 mg PRN Q10MIN PRN IV SEVERE PAIN; Start 02/14/17 at 13:15; Stop 02/14/17 at 19:00; Status DC Ringer's Solution 1,000 ml @ 30 mls/hr Q24H IV Last administered on 12:30; Start 02/14/17 at 13:00; Stop 02/14/17 at 19:00; Status DC Lidocaine HCl (Xylocaine-Mpf 1% Vial) 2 ml PRN 1X PRN ID PRIOR TO IV START; Start 02/14/17 at 13:15; Stop 02/14/17 at 19:00; Status DC Hydromorphone HCl (Dilaudid) 0.5 mg PRN Q10MIN PRN IV SEV PAIN, Second choice Last administered on 02/14/17 13:41; Start 02/14/17 at 13:15; Stop 02/14/17 at 19:00; Status DC Prochlorperazine Edisylate (Compazine) 5 mg PACU PRN PRN IV NAUSEA, MRX1 Last administered on 02/14/17 14:05; Start 02/14/17 at 13:15; Stop 02/14/17 at 19 :00; Status DC Fentanyl Citrate (Fentanyl 2ml Vial) 100 mcg STK-MED ONCE .ROUTE ; Start at 13:07; Stop 02/14/17 at 13:08; Status DC Hydromorphone HCl (Dilaudid) 2 mg STK-MED ONCE .ROUTE ; Start 02/14/17 at 13:28 ; Stop 02/14/17 at 13:29; Status DC Vancomycin HCl (Vanco Per Pharmacy) 1 each PRN DAILY PRN MC SEE COMMENTS; Start 02/15/17 at 12:45 Vancomycin HCl 2 gm/Dextrose 500 ml @ 250 mls/hr 1X ONCE IV Last administered on 02/15/17 13:35; Start 02/15/17 at 13:30; Stop 02/15/17 at 15 :29 Ferrous Sulfate (Feosol) 325 mg BID PO Last administered on 02/15/17 13:35; Start 02/15/17 at 13:00 Vancomycin HCl 1.75 gm/Dextrose 500 ml @ 250 mls/hr Q8H IV ; Start 02/15/17 at 22:00 Vancomycin HCl 1 each 1X ONCE MC ; Start 02/16/17 at 13:30; Stop 02/16/17 at 13:31 Active Scripts Active Reported Ibuprofen 800 Mg Tablet 800 Mg PO Pepcid (Famotidine) 40 Mg Tablet 40 Mg PO TID Nexium Capsule (Esomeprazole Magnesium) 40 Mg Capsule.dr 40 Mg PO BID Robaxin (Methocarbamol) 500 Mg Tablet 1 Tab PO TID Topamax (Topiramate) 25 Mg Tablet 1 Tab PO BID Lisinopril-Hctz 20-25 Mg Tab (Lisinopril/Hydrochlorothiazide) 1 Each Tablet 1 Tab PO DAILY Gabapentin 300 Mg Capsule 300 Mg PO TID Vitals/I & O Vital Sign - Last 24 Hours 02/14/17 02/14/17 02/14/17 02/14/17 15:30 16:00 16:30 17:00 Pulse 93 87 85 85 B/P (MAP) 98/57 (71) 105/58 (74) 95/51 (66) 91/54 (66) 02/14/17 02/14/17 02/15/17 02/15/17 19:00 23:00 03:00 07:00 Temp 98.1 97.3 97.6 97.9 98.1 97.3 97.6 97.9 Pulse 92 86 72 82 Resp 18 17 17 19 B/P (MAP) 98/57 (71) 106/66 (79) 104/65 (78) 105/52 (69) Pulse Ox 96 97 95 93 O2 Delivery Room Air Room Air Room Air Room Air 02/15/17 02/15/17 07:45 11:04 Temp 97.7 97.7 Pulse 84 Resp 20 B/P (MAP) 124/69 (87) Pulse Ox 97 O2 Delivery Room Air Room Air Intake and Output 02/14/17 02/14/17 02/15/17 14:59 22:59 06:59 Intake Total 1850 ml 901 ml 700 ml Output Total 5 ml Balance 1845 ml 901 ml 700 ml IDA CURRIE MD Feb 15, 2017 15:10
[2017-02-15] MEDS ORDERED: traMADol 50 MG TABLET PO PRN (15:15)
[2017-02-15] MEDS ORDERED: ONDANSETRON PF 4 MG/2 ML VIAL. IV PRN (15:15)
[2017-02-15] MEDS ORDERED: hydrALAZINE 20 MG/ML VIAL. IVP PRN (15:15)
[2017-02-15] MEDS ORDERED: ACETAMINOPHEN 325 MG TABLET. PO PRN (15:15)
[2017-02-15] MEDS ORDERED: DOCUSATE SODIUM 100 MG CAPSULE. PO PRN (15:15)
[2017-02-15] MEDS ORDERED: MORPHINE SULFATE 4 MG/ML DISP.SYRIN. IV PRN (15:15)
--- NOTE | 2017-02-15 16:25 | PDOC ---
Provider Note Provider Note SURG went to see earlier, pt had left room to visit someone on the fourth floor JOSE HERNANDEZ MD Feb 15, 2017 16:25
[2017-02-15] MEDS ORDERED: diphenhydrAMINE HCL 25 MG CAPSULE PO PRN ×2 (16:30)
[2017-02-15] MEDS: VANCOMYCIN 1.75 GM in IV DEXTROSE 5% 500 ML IV SCH (20:43)
[2017-02-16 03:00] VITALS: BP 107/62
[2017-02-16 04:22] LABS: BASO # 0.1 x10^3/uL (0.0-0.2); BASO % 1 % (0-3); EOS % 2 % (0-3); HEMATOCRIT 33.9 % (36.0-47.0); HEMOGLOBIN 10.5 g/dL (12.0-15.5); LYMPH # 4.6 x10^3/uL (1.0-4.8); LYMPH % 41 % (24-48); MEAN CORPUSCULAR HEMOGLOBIN 21 pg (25-35); MEAN CORPUSCULAR HGB CONC 31 g/dL (31-37); MEAN CORPUSCULAR VOLUME 69 fL (79-100); MONO % 5 % (0-9); NEUT % 52 % (31-73); PLATELET COUNT 277 x10^3/uL (140-400); RED BLOOD COUNT 4.91 x10^6/uL (3.50-5.40); RED CELL DISTRIBUTION WIDTH 15.5 % (11.5-14.5); WHITE BLOOD COUNT 11.4 x10^3/uL (4.0-11.0)
[2017-02-16 04:35] LABS: CALCIUM 8.6 mg/dL (8.5-10.1); CREATININE 0.7 mg/dL (0.6-1.0); GFR 111.6; POTASSIUM 3.9 mmol/L (3.5-5.1)
[2017-02-16] MEDS: VANCOMYCIN 1.75 GM in IV DEXTROSE 5% 500 ML IV SCH ×2 (05:37→14:00)
[2017-02-16 07:00] VITALS: BP 125/73
[2017-02-16] MEDS: PANTOPRAZOLE 40 MG TABLET.DR. PO SCH (07:39)
[2017-02-16] MEDS: KETOROLAC 30 MG/ML INJ. IV PRN (07:40)
[2017-02-16] MEDS: hydroCHLOROthiazide 25 MG TABLET PO SCH (08:48)
[2017-02-16] MEDS: TOPIRAMATE 25 MG TABLET. PO SCH (08:48)
[2017-02-16] MEDS: FERROUS SULFATE 325 MG TABLET. PO SCH (08:48)
[2017-02-16] MEDS: LISINOPRIL 20 MG TABLET PO SCH (08:48)
[2017-02-16] MEDS: METHOCARBAMOL 500 MG TABLET PO SCH ×2 (08:48→14:16)
[2017-02-16] MEDS: GABAPENTIN 300 MG CAPSULE. PO SCH ×2 (08:48→14:16)
--- NOTE | 2017-02-16 09:45 | PDOC ---
LEXIE ESCALANTE CREDIT ASSISTANT 02/16/17 0945: SURGICAL PROGRESS NOTE Subjective pain improved asking about discharge Vital Signs Vital Signs Date Time Temp Pulse Resp B/P (MAP) Pulse Ox O2 Delivery O2 Flow Rate FiO2 02/16/17 08:50 Room Air 02/16/17 08:48 72 125/73 02/16/17 07:00 97.5 20 99 97.5 02/15/17 19:00 I&O Intake and Output 02/16/17 07:00 Intake Total 1560 ml Balance 1560 ml Intake Oral 1060 ml IV Total 500 ml # Voids 5 # Bowel Movements 1 General: Alert, Oriented X3, Cooperative Skin: Other (left axilla area packed) Labs Laboratory Tests Test 02/16/17 03:34 White Blood Count 11.4 x10^3/uL (4.0-11.0) Red Blood Count 4.91 x10^6/uL (3.50-5.40) Hemoglobin 10.5 g/dL (12.0-15.5) Hematocrit 33.9 % (36.0-47.0) Mean Corpuscular Volume 69 fL (79-100) Mean Corpuscular Hemoglobin 21 pg (25-35) Mean Corpuscular Hemoglobin Concent 31 g/dL (31-37) Red Cell Distribution Width 15.5 % (11.5-14.5) Platelet Count 277 x10^3/uL (140-400) Neutrophils (%) (Auto) 52 % (31-73) Lymphocytes (%) (Auto) 41 % (24-48) Monocytes (%) (Auto) 5 % (0-9) Eosinophils (%) (Auto) 2 % (0-3) Basophils (%) (Auto) 1 % (0-3) Neutrophils # (Auto) 5.9 x10^3uL (1.8-7.7) Lymphocytes # (Auto) 4.6 x10^3/uL (1.0-4.8) Monocytes # (Auto) 0.6 x10^3/uL (0.0-1.1) Eosinophils # (Auto) 0.2 x10^3/uL (0.0-0.7) Basophils # (Auto) 0.1 x10^3/uL (0.0-0.2) Sodium Level 141 mmol/L (136-145) Potassium Level 3.9 mmol/L (3.5-5.1) Chloride Level 108 mmol/L (98-107) Carbon Dioxide Level 26 mmol/L (21-32) Anion Gap 7 (6-14) Blood Urea Nitrogen 15 mg/dL (7-20) Creatinine 0.7 mg/dL (0.6-1.0) Estimated GFR (Cockcroft-Gault) 111.6 Glucose Level 106 mg/dL (70-99) Calcium Level 8.6 mg/dL (8.5-10.1) Laboratory Tests Test 02/16/17 03:34 White Blood Count 11.4 x10^3/uL (4.0-11.0) Red Blood Count 4.91 x10^6/uL (3.50-5.40) Hemoglobin 10.5 g/dL (12.0-15.5) Hematocrit 33.9 % (36.0-47.0) Mean Corpuscular Volume 69 fL (79-100) Mean Corpuscular Hemoglobin 21 pg (25-35) Mean Corpuscular Hemoglobin Concent 31 g/dL (31-37) Red Cell Distribution Width 15.5 % (11.5-14.5) Platelet Count 277 x10^3/uL (140-400) Neutrophils (%) (Auto) 52 % (31-73) Lymphocytes (%) (Auto) 41 % (24-48) Monocytes (%) (Auto) 5 % (0-9) Eosinophils (%) (Auto) 2 % (0-3) Basophils (%) (Auto) 1 % (0-3) Neutrophils # (Auto) 5.9 x10^3uL (1.8-7.7) Lymphocytes # (Auto) 4.6 x10^3/uL (1.0-4.8) Monocytes # (Auto) 0.6 x10^3/uL (0.0-1.1) Eosinophils # (Auto) 0.2 x10^3/uL (0.0-0.7) Basophils # (Auto) 0.1 x10^3/uL (0.0-0.2) Sodium Level 141 mmol/L (136-145) Potassium Level 3.9 mmol/L (3.5-5.1) Chloride Level 108 mmol/L (98-107) Carbon Dioxide Level 26 mmol/L (21-32) Anion Gap 7 (6-14) Blood Urea Nitrogen 15 mg/dL (7-20) Creatinine 0.7 mg/dL (0.6-1.0) Estimated GFR (Cockcroft-Gault) 111.6 Glucose Level 106 mg/dL (70-99) Calcium Level 8.6 mg/dL (8.5-10.1) Problem List Problems Medical Problems: (1) Abscess of axilla, left Status: Acute Assessment/Plan s/p debridement dc once wound care and abx arranged Problems: JOSE HERNANDEZ MD 02/16/17 1355: SURGICAL PROGRESS NOTE Assessment/Plan pt seen agree with above Problems: LEXIE ESCALANTE APRN Feb 16, 2017 09:45 JOSE HERNANDEZ MD Feb 16, 2017 13:55
[2017-02-16 11:00] VITALS: BP 112/55
[2017-02-16] MEDS ORDERED: HYDR-2758 PO (12:11)
[2017-02-16] MEDS ORDERED: FERR325T72 PO (12:11)
[2017-02-16] MEDS ORDERED: DOXY100T PO (13:33)
[2017-02-16] MEDS ORDERED: CEPH250C PO (13:33)
[2017-02-16] MEDS ORDERED: DOXYCYCLINE HYCLATE 100 MG TABLET PO SCH (13:45)
[2017-02-16] MEDS ORDERED: CEPHALEXIN 250 MG CAPSULE. PO SCH (13:45)
--- NOTE | 2017-02-16 15:34 | PDOC3 ---
Discharge Summary [facility] Date of Admission: Feb 13, 2017 Discharge Date: Feb 16, 2017 Admitting Diagnosis 1. LEft axillary cellulitis possible abscess underneath - already scheduled for I and D 2. Obesity, depression chronic pain ,neuropathy Problems: Final Diagnosis CONSULTS sx Procedures abcess i and d Brief Hospital Course Ms. Villalta is a 41 old F, presented with left axillary pain, underwent abcess i and d, with open wound , dressing packing now. ok to dc home, fu with outpt wound clinic, need remove the packing every other day and then repack it. wound cx + for proteus and enterococcus, sensitivity pending. dc home with keflex and doxy, fu with sx next week. dc time 35min. General: Alert, Oriented X3, No acute distress Heart: Regular rate, Normal S1, Normal S2 Lungs: Clear Abdomen: Normal bowel sounds, Soft Extremities: No clubbing, No cyanosis, Other (swelling, warmth, and TTP in the left axilla) Skin: Other (left axilla tender to aplpation, redness, swelling palpable tender induartion, open wound with dressing packing for drainage) Problems: Disposition home CONDITION AT DISCHARGE: Improved Diet regular Scheduled Cephalexin (Cephalexin), 500 MG PO QID Doxycycline Hyclate (Doxycycline Hyclate), 100 MG PO BID Esomeprazole Magnesium (Nexium Capsule), 40 MG PO BID, (Reported) Famotidine (Pepcid), 40 MG PO TID, (Reported) Ferrous Sulfate (Feosol), 325 MG PO BID Gabapentin (Gabapentin), 300 MG PO TID, (Reported) Lisinopril/Hydrochlorothiazide (Lisinopril-Hctz 20-25 Mg Tab), 1 TAB PO DAILY, ( Reported) Methocarbamol (Robaxin), 1 TAB PO TID, (Reported) Topiramate (Topamax), 1 TAB PO BID, (Reported) Scheduled PRN Hydrocodone Bit/Acetaminophen (Hydrocodone-Apap 5-325 ), 1-2 TAB PO PRN Q6HRS PRN for SEVERE PAIN Miscellaneous Medications Ibuprofen (Ibuprofen), 800 MG PO, (Reported) Follow Up sx in 2 weeks IDA CURRIE MD Feb 16, 2017 15:34
== END 2017-02-16 15:21 | disposition home or self-care (01) | DRG 571 ==
LOC: ER 21:14 → 5 NORTH 22:24
PROVIDERS: ADMIT Internal Medicine; ATTEND Internal Medicine
PROC: 0JBF0ZZ Excision of Left Upper Arm Subcutaneous Tissue and Fascia, Open Approach (ICD-10-PCS; principal; 2017-02-14 13:30)
DX: L02.412 Cutaneous abscess of left axilla (principal); Z68.41 Body mass index [BMI] 40.0-44.9, adult; E66.01 Morbid (severe) obesity due to excess calories; L03.112 Cellulitis of left axilla; I10 Essential (primary) hypertension; F32.9 Major depressive disorder, single episode, unspecified; G89.29 Other chronic pain; G62.9 Polyneuropathy, unspecified
CPT/HCPCS: 36415; 76882; 80048; 80053; 80202; 85025; 87040; 87071; 87075; 87205; J0330; J0780; J1100; J1170; J1885; J2405; J2704; J2765; J3010; J3370; J3490; J7030; J7120; Q0163; 99285-25; A4461; J2001

== ENCOUNTER → 2017-02-24 | Outpatient (CLI) | payer BC ==
[2017-02-16 11:00] VITALS: BP 112/55
[~2017-02-24] MED LIST: CEPH250C PO; DOXY100T PO; ESOM40CA PO; FAMO40TA57 PO; FERR325T72 PO; GABA-586 PO; HYDR-2758 PO; IBUP800T19 PO; LISI1TAB7 PO; METH-37 PO; TOPI25TA52 PO
== END | disposition home or self-care (01) ==
LOC: PMGWOUND 09:41
PROVIDERS: ATTEND Preventive Medicine Undersea and Hyperbaric Medicine
DX: L02.412 Cutaneous abscess of left axilla (principal); E78.5 Hyperlipidemia, unspecified; I10 Essential (primary) hypertension; K21.9 Gastro-esophageal reflux disease without esophagitis; M19.90 Unspecified osteoarthritis, unspecified site; F41.9 Anxiety disorder, unspecified; F32.9 Major depressive disorder, single episode, unspecified; E66.01 Morbid (severe) obesity due to excess calories; G62.9 Polyneuropathy, unspecified; G89.29 Other chronic pain; Z68.41 Body mass index [BMI] 40.0-44.9, adult
CPT/HCPCS: 97597

== ENCOUNTER → 2017-03-03 | Outpatient (CLI) | payer BC ==
[2017-02-16 11:00] VITALS: BP 112/55
== END | disposition home or self-care (01) ==
LOC: PMGWOUND 08:54
PROVIDERS: ATTEND Preventive Medicine Undersea and Hyperbaric Medicine
DX: L02.412 Cutaneous abscess of left axilla (principal); F41.9 Anxiety disorder, unspecified; I10 Essential (primary) hypertension; E78.5 Hyperlipidemia, unspecified; F32.9 Major depressive disorder, single episode, unspecified; E66.01 Morbid (severe) obesity due to excess calories; G62.9 Polyneuropathy, unspecified; G89.29 Other chronic pain; M19.90 Unspecified osteoarthritis, unspecified site; Z68.41 Body mass index [BMI] 40.0-44.9, adult
CPT/HCPCS: 99214

== ENCOUNTER → 2017-03-10 | Outpatient (CLI) | payer BC ==
[2017-02-16 11:00] VITALS: BP 112/55
== END | disposition home or self-care (01) ==
LOC: PMGWOUND 09:26
PROVIDERS: ATTEND Preventive Medicine Undersea and Hyperbaric Medicine
DX: L02.412 Cutaneous abscess of left axilla (principal); E78.5 Hyperlipidemia, unspecified; I10 Essential (primary) hypertension; K21.9 Gastro-esophageal reflux disease without esophagitis; M19.90 Unspecified osteoarthritis, unspecified site; F41.9 Anxiety disorder, unspecified; E66.01 Morbid (severe) obesity due to excess calories; Z68.41 Body mass index [BMI] 40.0-44.9, adult; F32.9 Major depressive disorder, single episode, unspecified
CPT/HCPCS: 17250

== ENCOUNTER → 2017-03-17 | Outpatient (CLI) | payer BC ==
[2017-02-16 11:00] VITALS: BP 112/55
== END | disposition home or self-care (01) ==
LOC: PMGWOUND 08:51
PROVIDERS: ATTEND Preventive Medicine Undersea and Hyperbaric Medicine
DX: L98.495 Non-pressure chronic ulcer of skin of other sites with muscle involvement without evidence of necrosis (principal); F41.9 Anxiety disorder, unspecified; I10 Essential (primary) hypertension; K21.9 Gastro-esophageal reflux disease without esophagitis; E78.5 Hyperlipidemia, unspecified; F32.9 Major depressive disorder, single episode, unspecified; M19.90 Unspecified osteoarthritis, unspecified site; G62.9 Polyneuropathy, unspecified; G89.29 Other chronic pain; E66.01 Morbid (severe) obesity due to excess calories; Z68.41 Body mass index [BMI] 40.0-44.9, adult
CPT/HCPCS: 17250

== ENCOUNTER → 2017-03-24 | Outpatient (CLI) | payer BC | END | disposition home or self-care (01) | LOC: PMGWOUND 08:55 | PROVIDERS: ATTEND Preventive Medicine Undersea and Hyperbaric Medicine | DX: L98.495 Non-pressure chronic ulcer of skin of other sites with muscle involvement without evidence of necrosis (principal); F41.9 Anxiety disorder, unspecified; I10 Essential (primary) hypertension; K21.9 Gastro-esophageal reflux disease without esophagitis; E78.5 Hyperlipidemia, unspecified; F32.9 Major depressive disorder, single episode, unspecified; M19.90 Unspecified osteoarthritis, unspecified site; G62.9 Polyneuropathy, unspecified; G89.29 Other chronic pain; E66.01 Morbid (severe) obesity due to excess calories; Z68.41 Body mass index [BMI] 40.0-44.9, adult | CPT/HCPCS: 99214 ==

== ENCOUNTER 2017-04-14 05:01 | Emergency (ER) | payer OTHER, BC ==
[2017-04-14] MEDS ORDERED: KETOROLAC 60 MG/2 ML INJ. (06:28)
[2017-04-14] MEDS ORDERED: LIDOCAINE 2% VISCOUS 15 ML SOLUTION. (06:29)
[2017-04-14] MEDS: KETOROLAC 60 MG/2 ML INJ. IM (06:32)
[2017-04-14] MEDS: LIDOCAINE 2% VISCOUS 15 ML SOLUTION. SWSW (06:32)
[2017-04-14 11:27] LABS: NEGATIVE OBC STREP NEG; POSITIVE OBC STREP POS
== END 2017-04-14 07:00 | disposition home or self-care (01) ==
LOC: ER 05:01
DX: J02.9 Acute pharyngitis, unspecified (principal); J04.0 Acute laryngitis; I10 Essential (primary) hypertension; K21.9 Gastro-esophageal reflux disease without esophagitis; G43.909 Migraine, unspecified, not intractable, without status migrainosus
CPT/HCPCS: 87070; 87880; 96372; 99283-25; J1885

== ENCOUNTER → 2017-05-17 | Outpatient (CLI) | payer OTHER, BC | END | disposition home or self-care (01) | LOC: PMGWOUND 09:36 | DX: L98.491 Non-pressure chronic ulcer of skin of other sites limited to breakdown of skin (principal); F41.9 Anxiety disorder, unspecified; I10 Essential (primary) hypertension; K21.9 Gastro-esophageal reflux disease without esophagitis; E78.5 Hyperlipidemia, unspecified; F32.9 Major depressive disorder, single episode, unspecified; M19.90 Unspecified osteoarthritis, unspecified site; G62.9 Polyneuropathy, unspecified; G89.29 Other chronic pain; E66.01 Morbid (severe) obesity due to excess calories; Z68.41 Body mass index [BMI] 40.0-44.9, adult | CPT/HCPCS: 99214 ==

== ENCOUNTER 2017-06-07 21:12 | Inpatient (IN) | payer OTHER ==
[2017-06-07 21:38] LABS: ADD MAN DIFF? NO
[2017-06-07 21:43] LABS: BASO # 0.1 x10^3/uL (0.0-0.2); BASO % 1 % (0-3); EOS # 0.1 x10^3/uL (0.0-0.7); EOS % 1 % (0-3); HEMATOCRIT 35.9 % (36.0-47.0); HEMOGLOBIN 11.4 g/dL (12.0-15.5); LYMPH # 3.8 x10^3/uL (1.0-4.8); LYMPH % 30 % (24-48); MEAN CORPUSCULAR HEMOGLOBIN 22 pg (25-35); MEAN CORPUSCULAR HGB CONC 32 g/dL (31-37); MEAN CORPUSCULAR VOLUME 68 fL (79-100); MONO # 0.7 x10^3/uL (0.0-1.1); MONO % 6 % (0-9); NEUT # 7.9 x10^3uL (1.8-7.7); NEUT % 63 % (31-73); PLATELET COUNT 237 x10^3/uL (140-400); RED BLOOD COUNT 5.26 x10^6/uL (3.50-5.40); RED CELL DISTRIBUTION WIDTH 15.5 % (11.5-14.5); WHITE BLOOD COUNT 12.5 x10^3/uL (4.0-11.0)
[2017-06-07] MEDS: fentaNYL PF VIAL 100 MCG/2 ML VIAL IV ×4 (21:49→23:39)
[2017-06-07] MEDS: IV NORMAL SALINE 1000ML BAG 1,000 ML IV (21:49)
[2017-06-07 21:50] LABS: INR 0.9 (0.8-1.1)
[2017-06-07 21:54] LABS: ANION GAP 14 (6-14); BLOOD UREA NITROGEN 11 mg/dL (7-20); CALCIUM 8.8 mg/dL (8.5-10.1); CARBON DIOXIDE 24 mmol/L (21-32); CHLORIDE 104 mmol/L (98-107); CREATININE 0.8 mg/dL (0.6-1.0); GFR 95.6; GLUCOSE 126 mg/dL (70-99); POTASSIUM 3.3 mmol/L (3.5-5.1); SODIUM 142 mmol/L (136-145)
[2017-06-07 21:58] LABS: PLT ESTIMATE ADEQUATE (ADEQUATE)
[2017-06-07 21:59] LABS: ALBUMIN 3.3 g/dL (3.4-5.0); ALK PHOS 44 U/L (46-116); ALT (SGPT) 24 U/L (14-59); AST (SGOT) 17 U/L (15-37); DIRECT BILIRUBIN < 0.1 mg/dL (0.0-0.2); HYPOCHROMIA MOD; LIPASE 140 U/L (73-393); MAGNESIUM 1.8 mg/dL (1.8-2.4); MICROCYTOSIS MOD; OVALOCYTES FEW; TOTAL BILIRUBIN 0.2 mg/dL (0.2-1.0); TOTAL PROTEIN 7.5 g/dL (6.4-8.2)
[2017-06-07 22:00] LABS: POIKILOCYTOSIS SLIGHT
[2017-06-07 22:00] LABS: TROPONINI < 0.017 ng/mL (0.000-0.055)
[2017-06-07] MEDS: ONDANSETRON PF 4 MG/2 ML VIAL. IV (22:06)
[2017-06-07 22:09] LABS: NT-PRO BNP 81 pg/mL (0-124); THYROID STIM HORMONE (TSH) 1.921 uIU/mL (0.358-3.74)
[2017-06-07 22:09] LABS: CKMB INDEX 0.3 % (0-4); CKMB MASS 0.6 ng/mL (0.0-3.6); CREATINE KINASE 175 U/L (26-192)
[2017-06-07 22:46] LABS: LACTIC ACID 1.4 mmol/L (0.4-2.0)
[2017-06-07] MEDS: PROMETHAZINE 25 MG in IV NORMAL SALINE 50ML 50 ML IV (23:34)
[2017-06-08] MEDS ORDERED: ONDANSETRON PF 4 MG/2 ML VIAL. IV ×2 (00:15→08:30)
[2017-06-08] MEDS: LIDO:MAALOX:DONNATAL 1:1:1 15 ML SINGLE DOSE SWSW (00:57)
[2017-06-08] MEDS: MORPHINE SULFATE 4 MG/ML DISP.SYRIN. IV (01:25)
[2017-06-08] MEDS ORDERED: ACETAMINOPHEN 325 MG TABLET. PO (02:30)
[2017-06-08] MEDS ORDERED: POLYETHYLENE GLYCOL 3350 17 GM PACKET. PO (02:30)
[2017-06-08] MEDS: diphenhydrAMINE 50 MG/ML VIAL IVP (02:36)
[2017-06-08 05:45] LABS: TROPONINI < 0.017 ng/mL (0.000-0.055)
[2017-06-08 07:05] LABS: TROPONINI < 0.017 ng/mL (0.000-0.055)
[2017-06-08] MEDS ORDERED: PROMETHAZINE 6.25 MG in IV NORMAL SALINE 50ML 50 ML IV (08:15)
[2017-06-08] MEDS ORDERED: oxyCODONE/APAP 5/325 1 TAB TABLET PO (08:15)
[2017-06-08] MEDS ORDERED: HYDROcodone/APAP 5/325MG 1 TAB TABLET PO (08:30)
[2017-06-08] MEDS: POTASSIUM CL 30MEQ D5-0.45NACL 1,000 ML IV ×2 (08:47→23:30)
[2017-06-08] MEDS: GABAPENTIN 300 MG CAPSULE. PO ×3 (09:00→20:30)
[2017-06-08] MEDS: PANTOPRAZOLE 40 MG TABLET.DR. PO ×2 (09:00→17:19)
[2017-06-08] MEDS: TOPIRAMATE 25 MG TABLET. PO ×2 (09:00→20:36)
[2017-06-08] MEDS: FERROUS SULFATE 325 MG TABLET. PO ×2 (09:00→17:00)
[2017-06-08] MEDS: METHOCARBAMOL 500 MG TABLET PO ×3 (09:00→20:36)
[2017-06-08] MEDS: fentaNYL PF VIAL 100 MCG/2 ML VIAL IV ×2 (15:06→17:22)
[2017-06-09 05:32] LABS: ADD MAN DIFF? NO
[2017-06-09 05:38] LABS: BASO # 0.1 x10^3/uL (0.0-0.2); BASO % 1 % (0-3); EOS # 0.2 x10^3/uL (0.0-0.7); EOS % 2 % (0-3); HEMOGLOBIN 11.4 g/dL (12.0-15.5); LYMPH # 4.6 x10^3/uL (1.0-4.8); LYMPH % 47 % (24-48); MEAN CORPUSCULAR HEMOGLOBIN 22 pg (25-35); MEAN CORPUSCULAR HGB CONC 32 g/dL (31-37); MEAN CORPUSCULAR VOLUME 68 fL (79-100); MONO # 0.5 x10^3/uL (0.0-1.1); MONO % 5 % (0-9); NEUT # 4.4 x10^3uL (1.8-7.7); NEUT % 45 % (31-73); PLATELET COUNT 205 x10^3/uL (140-400); RED BLOOD COUNT 5.29 x10^6/uL (3.50-5.40); RED CELL DISTRIBUTION WIDTH 15.8 % (11.5-14.5); WHITE BLOOD COUNT 9.7 x10^3/uL (4.0-11.0)
[2017-06-09 06:27] LABS: ALBUMIN 2.8 g/dL (3.4-5.0); ALBUMIN/GLOBULIN RATIO 0.7 (1.0-1.7); ALK PHOS 47 U/L (46-116); ALT (SGPT) 22 U/L (14-59); ANION GAP 8 (6-14); AST (SGOT) 15 U/L (15-37); BLOOD UREA NITROGEN 6 mg/dL (7-20); BUN/CREATININE RATIO 9 (6-20); CALCIUM 8.4 mg/dL (8.5-10.1); CARBON DIOXIDE 27 mmol/L (21-32); CHLORIDE 106 mmol/L (98-107); CREATININE 0.7 mg/dL (0.6-1.0); GFR 111.6; GLUCOSE 91 mg/dL (70-99); POTASSIUM 3.9 mmol/L (3.5-5.1); SODIUM 141 mmol/L (136-145); TOTAL BILIRUBIN 0.5 mg/dL (0.2-1.0); TOTAL PROTEIN 6.8 g/dL (6.4-8.2)
[2017-06-09] MEDS ORDERED: fentaNYL PF VIAL 100 MCG/2 ML VIAL IV (07:00)
[2017-06-09] MEDS: IV RINGERS,LACTATED 1000ML 1,000 ML IV (07:00)
[2017-06-09] MEDS ORDERED: LIDOCAINE 1% PF 2 ML VIAL. ID (07:00)
[2017-06-09] MEDS: PANTOPRAZOLE 40 MG TABLET.DR. PO ×2 (07:30→16:17)
[2017-06-09 07:34] LABS: NEG OBC SER NEG; POS OBC SER POS; PREG TEST PT QUAL NEGATIVE (NEG)
[2017-06-09] MEDS: FERROUS SULFATE 325 MG TABLET. PO ×2 (08:00→16:17)
[2017-06-09] MEDS: TOPIRAMATE 25 MG TABLET. PO ×2 (08:18→21:00)
[2017-06-09] MEDS: METHOCARBAMOL 500 MG TABLET PO ×3 (08:18→21:00)
[2017-06-09] MEDS: GABAPENTIN 300 MG CAPSULE. PO ×3 (08:18→20:15)
[2017-06-09] MEDS ORDERED: fentaNYL PF VIAL 100 MCG/2 ML VIAL ×3 (09:19→12:36)
[2017-06-09] MEDS ORDERED: PROPOFOL 20 ML IV (09:19)
[2017-06-09] MEDS ORDERED: ROCURONIUM 50 MG/5 ML VIAL. (09:19)
[2017-06-09] MEDS ORDERED: LIDOCAINE 1% PF 5 ML VIAL. (10:03)
[2017-06-09] MEDS ORDERED: MIDAZOLAM HCL/PF 2 MG/2 ML VIAL. (10:12)
[2017-06-09] MEDS ORDERED: DESFLURANE 61 TO 120 MINUTES IH (10:31)
[2017-06-09] MEDS ORDERED: DEXAMETHASONE SOD PHOS 20 MG/5 ML VIAL. (10:31)
[2017-06-09] MEDS ORDERED: FAMOTIDINE 20 MG/2 ML VIAL (10:31)
[2017-06-09] MEDS: IOHEXOL 300 MG/ML 100ML VIAL. (10:41)
[2017-06-09] MEDS: BUPIVAC MPF-EPI 0.5%-1:200000 30 ML VIAL. INJ (10:41)
[2017-06-09] MEDS ORDERED: ONDANSETRON PF 4 MG/2 ML VIAL. (10:42)
[2017-06-09] MEDS ORDERED: GLYCOPYRROLATE 1 MG/5 ML VIAL. (10:43)
[2017-06-09] MEDS: SURGICEL HEMOSTAT 4X8 EACH. (11:05)
[2017-06-09] MEDS: POTASSIUM CL 30MEQ D5-0.45NACL 1,000 ML IV ×2 (11:40→20:12)
[2017-06-09] MEDS: fentaNYL PF VIAL 100 MCG/2 ML VIAL IV ×7 (12:00→19:08)
[2017-06-09] MEDS: KETOROLAC 30 MG/ML INJ. IV (12:06)
[2017-06-09] MEDS ORDERED: PROCHLORPERAZINE 10 MG/2 ML VIAL. (12:14)
[2017-06-09] MEDS: MORPHINE SULFATE 4 MG/ML DISP.SYRIN. IV ×4 (12:18→13:18)
[2017-06-09] MEDS: PROCHLORPERAZINE 10 MG/2 ML VIAL. IV (12:26)
[2017-06-09] MEDS: oxyCODONE/APAP 5/325 1 TAB TABLET PO ×3 (17:08→23:09)
[2017-06-09] MEDS: ONDANSETRON PF 4 MG/2 ML VIAL. IV (17:49)
[2017-06-10] MEDS: diphenhydrAMINE 50 MG/ML VIAL IVP (02:16)
[2017-06-10 05:50] LABS: ADD MAN DIFF? NO
[2017-06-10] MEDS: oxyCODONE/APAP 5/325 1 TAB TABLET PO ×2 (06:03→11:01)
[2017-06-10 06:12] LABS: BASO % 0 % (0-3); EOS % 0 % (0-3); HEMATOCRIT 36.1 % (36.0-47.0); HEMOGLOBIN 11.1 g/dL (12.0-15.5); LYMPH % 24 % (24-48); MEAN CORPUSCULAR HEMOGLOBIN 21 pg (25-35); MEAN CORPUSCULAR HGB CONC 31 g/dL (31-37); MEAN CORPUSCULAR VOLUME 69 fL (79-100); MONO # 0.8 x10^3/uL (0.0-1.1); MONO % 6 % (0-9); NEUT # 8.5 x10^3uL (1.8-7.7); NEUT % 69 % (31-73); PLATELET COUNT 217 x10^3/uL (140-400); RED BLOOD COUNT 5.23 x10^6/uL (3.50-5.40); RED CELL DISTRIBUTION WIDTH 15.6 % (11.5-14.5); WHITE BLOOD COUNT 12.4 x10^3/uL (4.0-11.0)
[2017-06-10 06:32] LABS: ALBUMIN 2.6 g/dL (3.4-5.0); ALBUMIN/GLOBULIN RATIO 0.7 (1.0-1.7); ALK PHOS 47 U/L (46-116); ALT (SGPT) 43 U/L (14-59); ANION GAP 9 (6-14); AST (SGOT) 33 U/L (15-37); BLOOD UREA NITROGEN 9 mg/dL (7-20); BUN/CREATININE RATIO 13 (6-20); CALCIUM 8.4 mg/dL (8.5-10.1); CARBON DIOXIDE 25 mmol/L (21-32); CHLORIDE 108 mmol/L (98-107); CREATININE 0.7 mg/dL (0.6-1.0); GFR 111.6; GLUCOSE 106 mg/dL (70-99); POTASSIUM 4.4 mmol/L (3.5-5.1); SODIUM 142 mmol/L (136-145); TOTAL BILIRUBIN 0.4 mg/dL (0.2-1.0); TOTAL PROTEIN 6.6 g/dL (6.4-8.2)
[2017-06-10] MEDS: GABAPENTIN 300 MG CAPSULE. PO ×2 (07:22→11:00)
[2017-06-10] MEDS: POTASSIUM CL 30MEQ D5-0.45NACL 1,000 ML IV (07:23)
[2017-06-10] MEDS: PANTOPRAZOLE 40 MG TABLET.DR. PO (07:23)
[2017-06-10] MEDS: TOPIRAMATE 25 MG TABLET. PO (07:25)
[2017-06-10] MEDS: METHOCARBAMOL 500 MG TABLET PO ×2 (07:25→11:01)
[2017-06-10] MEDS: FERROUS SULFATE 325 MG TABLET. PO (07:25)
== END 2017-06-10 13:54 | disposition home or self-care (01) | DRG 417 ==
LOC: 5 SOUTH 06-08 00:29 → ER 21:12
PROC: 0FT44ZZ Resection of Gallbladder, Percutaneous Endoscopic Approach (ICD-10-PCS; principal; 2017-06-09 10:14)
PROC: BF131ZZ Fluoroscopy of Gallbladder and Bile Ducts using Low Osmolar Contrast (ICD-10-PCS; 2017-06-09 10:14)
DX: K80.10 Calculus of gallbladder with chronic cholecystitis without obstruction (principal); R65.11 Systemic inflammatory response syndrome (SIRS) of non-infectious origin with acute organ dysfunction; I95.9 Hypotension, unspecified; E66.01 Morbid (severe) obesity due to excess calories; Z68.41 Body mass index [BMI] 40.0-44.9, adult; E78.5 Hyperlipidemia, unspecified; E87.6 Hypokalemia; F32.9 Major depressive disorder, single episode, unspecified; F41.9 Anxiety disorder, unspecified; I10 Essential (primary) hypertension; K21.9 Gastro-esophageal reflux disease without esophagitis; K44.9 Diaphragmatic hernia without obstruction or gangrene; G43.909 Migraine, unspecified, not intractable, without status migrainosus; D50.9 Iron deficiency anemia, unspecified
CPT/HCPCS: 36415; 71045; 74300; 76700; 80048; 80053; 80076; 82553; 83605; 83690; 83735; 83880; 84443; 84484; 84703; 85025; 85610; 88304; 93005; C1769; J0690; J0780; J1100; J1200; J1885; J2270; J2405; J2550; J2704; J3010; J3490; J7030; Q9967; S0028